=== PATIENT | female | born 1965 | race Two or more races ===

== ENCOUNTER 2018-01-08 10:02 | Emergency (ER) | payer MEDICAID ==
[~2018-01-08] VITALS: Ht 175.3 cm; Wt 81.2 kg
[2018-01-08 10:11] VITALS: BP 125/75
[2018-01-08 10:51] LABS: Basophils # (auto) 0 uL; Basophils % (auto) 0.4 % (0.0-2.0); Eosinophils # (auto) 0 uL; Eosinophils % (auto) 0.4 % (0.0-7.0); Hematocrit 43.6 % (36.0-46.0); Hemoglobin 14.5 g/dL (12.2-16.2); Lymphocytes # (auto) 0.9 uL; Lymphocytes % (auto) 19.5 % (10.0-50.0); Mean Corpuscular Hemoglobin 30.1 pg (28.0-32.0); Mean Corpuscular Hgb Conc. 33.3 g/dL (32.0-36.0); Mean Corpuscular Volume 90.5 fL (80.0-100.0); Monocytes # (auto) 0.6 uL; Neutrophils # (auto) 3.1 uL; Neutrophils % (auto) 66.7 % (37.0-80.0); Nucleated Red Blood Cells % 0.1 %; Platelet Count (auto) 177 10^3/uL (140-450); Red Blood Cells 4.82 10^6/uL (4.0-5.20); Red Cell Distribution Width 14.1 % (11.8-14.3); White Blood Cell 4.6 10^3/uL (4.4-10.8)
[2018-01-08 11:09] LABS: Alanine Aminotransferase 39 U/L (13-56); Albumin 4.2 g/dL (3.4-5.0); Alkaline Phosphatase 70 U/L (45-117); Anion Gap 6 (5-15); Aspartate Aminotransferase 26 U/L (15-37); BUN/Creatinine Ratio 14.7; Bilirubin, Total 0.3 mg/dL (0.2-1.0); Blood Urea Nitrogen 14 mg/dL (7-18); Calcium 9.1 mg/dL (8.5-10.1); Carbon Dioxide 27 mmol/L (21-32); Chloride 106 mmol/L (98-107); GFR African American 80 mL/min; GFR Non-African American 66 mL/min; Glucose 109 mg/dL (74-106); Magnesium 2.4 mg/dL (1.6-2.6); Potassium 4.2 mmol/L (3.5-5.1); Sodium 139 mmol/L (136-145); Total Protein 8.4 g/dL (6.4-8.2)
== END 2018-01-08 19:54 | disposition left against medical advice (07) ==
LOC: ER 10:02
DX: R51 Headache (principal); R07.9 Chest pain, unspecified; Z53.21 Procedure and treatment not carried out due to patient leaving prior to being seen by health care provider
CPT/HCPCS: 36415; 80053; 83735; 84484; 85025; 93005

== ENCOUNTER → 2018-05-07 | Outpatient (CLI) | payer MEDICAID ==
[2018-05-07 13:28] VITALS: BP 124/79
== END | disposition home or self-care (01) ==
LOC: XY 10:16
PROVIDERS: ATTEND Internal Medicine Cardiovascular Disease
DX: I20.8 Other forms of angina pectoris (principal)
CPT/HCPCS: 78452; 93017; A9500

== ENCOUNTER 2018-12-17 07:23 | Emergency (ER) | payer MEDICAID, OTHER ==
[~2018-12-17] VITALS: Ht 175.3 cm; Wt 77.1 kg
[~2018-12-17 07:23] MED LIST: ASPI81TA27 PO; LEVO25TA6 PO; SIMV10TA84 PO
[2018-12-17 08:33] VITALS: BP 138/47
[2018-12-17] MEDS ORDERED: PHENAZOPYRIDINE HCL 100 MG TAB PO ONE (09:15)
[2018-12-17] MEDS ORDERED: cefTRIAXone SOD 1,000 MG VL IM ONE (09:15)
== END 2018-12-17 09:29 | disposition home or self-care (01) ==
LOC: ER 07:23
DX: N39.0 Urinary tract infection, site not specified (principal); E78.5 Hyperlipidemia, unspecified; Z79.82 Long term (current) use of aspirin; Z79.899 Other long term (current) drug therapy
CPT/HCPCS: 96372; 99283; J0696